=== PATIENT | male | born 1955 | race Caucasian/White ===

== ENCOUNTER 2018-12-26 11:18 | Emergency (ER) | payer OTHER, SELFPAY ==
[2018-12-26 11:29] VITALS: BP 170/77; PULSE 84; RESP 14; TEMP 36.4; O2SAT 99
--- NOTE | 2018-12-26 11:42 | ED.BACK ---
HPI - Back Pain/Injury <AMARILIS Mayers - Last Filed: 12/26/18 14:51> General Chief Complaint: Back Pain/Injury Stated Complaint: Low back pain Time Seen by Provider: 12/26/18 11:25 Source: patient Mode of arrival: ambulatory Limitations: no limitations History of Present Illness HPI Narrative: This is a 63-year-old male, nonsmoker, who presents with chief complain of bilateral nonradiating low back pain. He denies fever chills, nausea, vomiting. Patient denies urinary symptoms. Patient reports history of kidney stone once in the past. Patient reports he woke up a couple of days ago with back tightness and felt his back tweaked. He denies injury, trauma, any recent heavy lifting, recent back manipulation, or injection. He reports pain increases with changing in his body position, movement. He denies tingling numbness to his lower extremities, numbness to his groin area, weakness to his extremities. He reports had taken and stays last night. Related Data Home Medications Medication Instructions Recorded Confirmed [SLEEPING PILL] #0 08/26/17 Previous Rx's Medication Instructions Recorded aspirin 81 mg PO QPM #30 tab 08/27/17 carvedilol [Coreg] 12.5 mg PO BID #60 tab 08/27/17 furosemide 40 mg PO QDAY #30 tab 08/27/17 losartan 100 mg PO QPM #30 tab 08/27/17 rosuvastatin 10 mg PO HS #30 tab 08/27/17 sertraline 50 mg PO QDAY #30 tab 08/27/17 spironolactone 25 mg PO QDAY #30 tab 08/27/17 ciprofloxacin HCl [Cipro] 500 mg PO BID #14 tab 12/26/18 cyclobenzaprine 10 mg PO BEDTIME #5 tab 12/26/18 Allergies Allergy/AdvReac Type Severity Reaction Status Date / Time No Known Allergies Allergy Uncoded 08/26/17 14:15 Review of Systems <AMARILIS Mayers - Last Filed: 12/26/18 14:51> Review of Systems General: Denies fever, chills, fatigue, malaise, sweats. HEENT: Denies sinus pain, ear pain, sore throat, difficulty swallowing, dizziness. Respiratory: Denies dyspnea, cough, wheezing, hemoptysis, sputum. Cardiovascular: Denies chest pain, palpitations, orthopnea, edema. Gastrointestinal: Denies nausea, vomiting, abdominal pain, diarrhea, constipation, melena. : Denies dysuria, frequency, incontinence, hematuria, urinary retention. Musculoskeletal: Denies weakness, joint pain or bony pain. Skin: Denies rash, skin lesions, or other. Neurologic: Denies weakness, headache, numbness, change in speech, confusion, seizures, incoordination. Psychiatric: No concerning psychosocial issues. 12-point review of systems is negative except for those stated above. ENT Ears, Nose, Mouth, and Throat: Denies neck pain Musculoskeletal Reports abnormal gait, Reports back pain, Denies joint swelling, Reports limited range of motion, Denies muscle weakness, Denies neck pain, Denies numbness, Denies radiating pain into limb, Reports stiffness and Denies tingling Neurologic Reports abnormal gait, Denies numbness and Denies tingling PFSH <AMARILIS Mayers - Last Filed: 12/26/18 14:51> Medical History (Updated 12/26/18 @ 14:21 by AMARILIS Mayers) Cardiac defibrillator in place (Acute) HTN (hypertension) (Acute) Heart failure (Acute) Hyperlipidemia (Acute) Social History (Updated 12/26/18 @ 14:51 by AMARILIS Mayers) Smoking Status: Never smoker Exam <DEUCE MayersP - Last Filed: 12/26/18 14:51> Narrative Exam Narrative: General appearance: well developed, well nourished, in discomfort, walking into ED room in slow and waddle-like gait. Head: normocephalic, atraumatic, no scalp lesions, non-tender. Eye: pupil equal, round. EOMI. Nose: nares patent. Oral: mucosa moist. Neck/Thyroid: neck supple, full range of motion, no visible masses. Skin: no suspicious rashes, lesions over visible areas. Warm and dry. Heart: no clubbing, no cyanosis, no edema. Lungs: Clear to auscultate bilaterally. Breathing even and unlabored. No stridor. No accessory muscles used. Chest: S1, S2 in regular rhythm and rate. normal shape and expansion. Abdomen: non-obese, non-distended. Abdomen soft to palpate. Bowel sounds in 4 quadrants. No organomegaly. Neurologic: alert and oriented. Cognitive exam, [employer]OR and PNS grossly intact on informal exam. Psych: good eye contact, normal affect. Initial Vital Signs Initial Vital Signs: Vital Signs Temperature 97.6 F 12/26/18 11:29 Pulse Rate 84 12/26/18 11:29 Respiratory Rate 14 12/26/18 11:29 Blood Pressure 170/77 H 12/26/18 11:29 Pulse Oximetry 99 12/26/18 11:29 Back/Spine/Pelvis Back: normal to inspection Cervical Spine: normal cervical lordosis Thoracic/Lumbar Spine: thoracic and lumbar spine normal to inspection, No surgical scar(s) present, bend over test abnormal, No paraspinal tenderness, thoraco-lumbar ROM limited, No lumbar spinal tenderness, straight leg raise positive and other (Limited active range of motion with flexion, extension, lateral bending.) Other: 2+ patella tendon reflex bilaterally <DO Karyna Mendez Last Filed: 12/26/18 17:56> Initial Vital Signs Initial Vital Signs: Vital Signs Temperature 97.6 F 12/26/18 11:29 Pulse Rate 84 12/26/18 11:29 Respiratory Rate 14 12/26/18 11:29 Blood Pressure 170/77 H 12/26/18 11:29 Pulse Oximetry 99 12/26/18 11:29 Course <AMARILIS Mayers - Last Filed: 12/26/18 14:51> Orders Ordered: ED Orders 12/26/18 11:43 XR lumbar spine 2-3V Stat 12/26/18 13:30 Urine Culture Stat Urine Microscopic Stat Discontinued Medications Cyclobenzaprine HCl (Flexeril) 10 mg PO NOW ONE Stop: 12/26/18 11:43 Last Admin: 12/26/18 12:09 Dose: 10 mg Ketorolac Tromethamine (Toradol) 60 mg IM NOW ONE Stop: 12/26/18 11:43 Last Admin: 12/26/18 12:09 Dose: 60 mg Vital Signs - 8 hr 12/26/18 11:29 12/26/18 13:53 Temperature 97.6 F Pulse Rate 84 54 L Respiratory Rate 14 17 Blood Pressure 170/77 H Blood Pressure [Right Arm] 153/84 H Pulse Oximetry 99 100 <DO Karyna Mendez Last Filed: 12/26/18 17:56> Orders Ordered: ED Orders 12/26/18 11:43 XR lumbar spine 2-3V Stat 12/26/18 13:30 Urine Culture Stat Urine Microscopic Stat Discontinued Medications Cyclobenzaprine HCl (Flexeril) 10 mg PO NOW ONE Stop: 12/26/18 11:43 Last Admin: 12/26/18 12:09 Dose: 10 mg Ketorolac Tromethamine (Toradol) 60 mg IM NOW ONE Stop: 12/26/18 11:43 Last Admin: 12/26/18 12:09 Dose: 60 mg Vital Signs - 8 hr 12/26/18 11:29 12/26/18 13:53 Temperature 97.6 F Pulse Rate 84 54 L Respiratory Rate 14 17 Blood Pressure 170/77 H Blood Pressure [Right Arm] 153/84 H Pulse Oximetry 99 100 MDM - Back Pain/Injury <Xiang AMARILIS Gomez - Last Filed: 12/26/18 14:51> Differential Diagnosis Differential diagnosis: Likely other (Lumbar strain, Low back pain) Medical Records Attestation: I reviewed the patient's medical records. Lab Data Lab Results 12/26/18 Range/Units 13:30 Urine RBC 1-5/hpf (0-5/HPF) Urine WBC 1-5/hpf (0-5/HPF) Ur Squamous Epith Cells 0-1 /hpf (0-5/HPF) Urine Bacteria Few (2-10) H (None) Urine Mucus 2+ H (Negative) Urine Sperm Present Ur Culture Indicated? Specimen cultured Urine Dip Bedside Urine Glucose Negative Bedside Urine Bilirubin + 1 Bedside Urine Ketone +/- 5 Urine Specific Anthony 1.025 Bedside Urine Occult Blood +/- Bedside Urine pH 5.5 Bedside Urine Protein + 30 Bedside Urine Urobilinogen +/- 1mg Bedside Urine Nitrite - Negative Bedside Urine Leukocytes +/- 15 Esterase Imaging Data XR-Lumbar: Radiologist's impression: Priyank Del Rosario 63 M [address] [address] XRay Report Signed Patient: Priyank Del Rosario GMR#: [id number] : 5Acct:[id number] Age/Sex: 63 / MDate of Service: 12/26/18 Loc: ED Accession Number: [id number] Procedure: XR lumbar spine 2-3V Ordering Provider: Xiang Gomez PROCEDURE: XR LUMBAR SPINE 2-3V INDICATIONS: low back pain TECHNIQUE: 3 views of the lumbar spine were acquired. COMPARISON: None. FINDINGS: Bones: 5 [id number] vertebrae are present. Straightening of the normal lumbar lordosis is present without spondylolisthesis. No vertebral body compression fractures. No suspicious bony lesions. Mild to moderate degenerative changes of the lumbar spine are more prominent involving the lower lumbar facet joints. Areas of mild disc height loss and anterior disc osteophyte complexes are present. Soft tissues: Overlying bowel gas pattern is normal. There is aortic atherosclerosis. No suspicious soft tissue calcifications. IMPRESSION: 1. No acute osseous abnormality of the lumbar spine. 2. Mild to moderate degenerative changes of the lumbar spine. Dictated by: Jose Nichols M.D. on 12/26/2018 at 11:22 Approved by: Jose Nichols M.D. on 12/26/2018 at 11:23 [facility] Narrative Medical decision making narrative: This is a 63-year-old male who presents with nonradiating bilateral low back pain for 2 days without injury, trauma, urinary symptoms. Patient denies constitutional symptoms, saddle anesthesia, weakness to bilateral lower limbs. Physical exam is more consistent with muscular skeletal back pain. Patient was treated with Flexeril 10 mg, Ketolac IM injection 60 mg while in ED. Lumbar x-ray test was negative for fractures but with mild to moderate degenerative changes of the lumbar spine. Urine POC test indicates infection with positive leukocytes esterase, blood, affected area and mucus and it is being cultured at this time. patient is being treated for pyelonephritis as well. We discussed return precautions. Patient reports does not have a PCP at this time. Patient advised to find a PCP by calling [facility] health resources, [facility] walk-in clinic, ED. Patient has no further questions and agrees with treatment plan. <Syed Barrientos, - Last Filed: 12/26/18 17:56> Lab Data Lab Results 12/26/18 Range/Units 13:30 Urine RBC 1-5/hpf (0-5/HPF) Urine WBC 1-5/hpf (0-5/HPF) Ur Squamous Epith Cells 0-1 /hpf (0-5/HPF) Urine Bacteria Few (2-10) H (None) Urine Mucus 2+ H (Negative) Urine Sperm Present Ur Culture Indicated? Specimen cultured Urine Dip Bedside Urine Glucose Negative Bedside Urine Bilirubin + 1 Bedside Urine Ketone +/- 5 Urine Specific Anthony 1.025 Bedside Urine Occult Blood +/- Bedside Urine pH 5.5 Bedside Urine Protein + 30 Bedside Urine Urobilinogen +/- 1mg Bedside Urine Nitrite - Negative Bedside Urine Leukocytes +/- 15 Esterase Discharge Plan Departure Patient Disposition: Home Clinical Impression: Infection of kidney Low back pain Qualifiers: Chronicity: acute Back pain laterality: bilateral Sciatica presence: without sciatica Qualified Code(s): M54.5 - Low back pain Discharge Date/Time: 12/26/18 14:39 Interventions: ED Discharge Assessment Last Done: 12/26/18 14:38 Instructions: DI for Kidney Infection, DI for Low Back Pain Activity Restrictions/Additional Instructions: You have been diagnosed with [ low back pain and kidney infection. You're physical exam is consistent with musculoskeletal pain. However you're urine test shows bacteria in her urine and you're urine is being cultured at this time. We will treat you for bladder infection/kidney infection as well at this time. You will be contacted if you're urine infection shows you require different medications]. What to do: *Take your medications as directed. Complete a course of antibiotic medications unless this gives you allergy reaction. You can take [id number] Tylenol, ibuprofen Motrin as needed for pain. You could use warm pack on affected site. Cyclobenzaprine is muscle relaxants and this may cause drowsiness and please take precaution. Please do not take alcohol, drive, or operate heavy equipment. *Follow up with your primary care provider in 2-3 days, call for an appointment. Let them know you were seen in the ED and that we asked you to be seen in follow up. *Return to ED if you have any new, worsening, or concerning symptoms, such as [increasing pain, tingling numbness to groin or extremities, incontinence, fever/chills, unable to tolerate fluids, chest pain, breathing difficulty, any acute concerns]. Prescriptions: New cyclobenzaprine 10 mg tablet 10 mg PO BEDTIME Qty: 5 RF: 0 ciprofloxacin HCl [Cipro] 500 mg tablet 500 mg PO BID Qty: 14 RF: 0 No Action [SLEEPING PILL] Qty: 0 RF: 0 carvedilol [Coreg] 12.5 MG tablet 12.5 mg PO BID Qty: 60 RF: 0 aspirin 81 MG tablet,delayed release (DR/EC) 81 mg PO QPM Qty: 30 RF: 0 losartan 100 MG tablet 100 mg PO QPM Qty: 30 RF: 0 rosuvastatin 10 MG tablet 10 mg PO HS Qty: 30 RF: 0 spironolactone 25 MG tablet 25 mg PO QDAY Qty: 30 RF: 0 sertraline 50 MG tablet 50 mg PO QDAY Qty: 30 RF: 0 furosemide 40 MG tablet 40 mg PO QDAY Qty: 30 RF: 0 Referrals: [facility] [Outside] <Syed Barrientos DO - Last Filed: 12/26/18 17:56> Cosign ED Attending Joseature Attestation: I was immediately available in the department for consultation. Documentation has been reviewed. I agree with assessment and plan.
--- NOTE | 2018-12-26 11:57 | ED_ITS ---
HPI - Back Pain/Injury <AMARILIS Mayers - Last Filed: 12/26/18 14:51> General Chief Complaint: Back Pain/Injury Stated Complaint: Low back pain Time Seen by Provider: 12/26/18 11:25 Source: patient Mode of arrival: ambulatory Limitations: no limitations History of Present Illness HPI Narrative: This is a 63-year-old male, nonsmoker, who presents with chief complain of bilateral nonradiating low back pain. He denies fever chills, nausea, vomiting. Patient denies urinary symptoms. Patient reports history of kidney stone once in the past. Patient reports he woke up a couple of days ago with back tightness and felt his back tweaked. He denies injury, trauma, any recent heavy lifting, recent back manipulation, or injection. He reports pain increases with changing in his body position, movement. He denies tingling numbness to his lower extremities, numbness to his groin area, weakness to his extremities. He reports had taken and stays last night. Related Data Home Medications Medication Instructions Recorded Confirmed [SLEEPING PILL] #0 08/26/17 Previous Rx's Medication Instructions Recorded aspirin 81 mg PO QPM #30 tab 08/27/17 carvedilol [Coreg] 12.5 mg PO BID #60 tab 08/27/17 furosemide 40 mg PO QDAY #30 tab 08/27/17 losartan 100 mg PO QPM #30 tab 08/27/17 rosuvastatin 10 mg PO HS #30 tab 08/27/17 sertraline 50 mg PO QDAY #30 tab 08/27/17 spironolactone 25 mg PO QDAY #30 tab 08/27/17 ciprofloxacin HCl [Cipro] 500 mg PO BID #14 tab 12/26/18 cyclobenzaprine 10 mg PO BEDTIME #5 tab 12/26/18 Allergies Allergy/AdvReac Type Severity Reaction Status Date / Time No Known Allergies Allergy Uncoded 08/26/17 14:15 Review of Systems <AMARILIS Mayers - Last Filed: 12/26/18 14:51> Review of Systems General: Denies fever, chills, fatigue, malaise, sweats. HEENT: Denies sinus pain, ear pain, sore throat, difficulty swallowing, dizziness. Respiratory: Denies dyspnea, cough, wheezing, hemoptysis, sputum. Cardiovascular: Denies chest pain, palpitations, orthopnea, edema. Gastrointestinal: Denies nausea, vomiting, abdominal pain, diarrhea, constipation, melena. : Denies dysuria, frequency, incontinence, hematuria, urinary retention. Musculoskeletal: Denies weakness, joint pain or bony pain. Skin: Denies rash, skin lesions, or other. Neurologic: Denies weakness, headache, numbness, change in speech, confusion, seizures, incoordination. Psychiatric: No concerning psychosocial issues. 12-point review of systems is negative except for those stated above. ENT Ears, Nose, Mouth, and Throat: Denies neck pain Musculoskeletal Reports abnormal gait, Reports back pain, Denies joint swelling, Reports limited range of motion, Denies muscle weakness, Denies neck pain, Denies numbness, Denies radiating pain into limb, Reports stiffness and Denies tingling Neurologic Reports abnormal gait, Denies numbness and Denies tingling PFSH <AMARILIS Mayers - Last Filed: 12/26/18 14:51> Medical History (Updated 12/26/18 @ 14:21 by AMARILIS Mayers) Cardiac defibrillator in place (Acute) HTN (hypertension) (Acute) Heart failure (Acute) Hyperlipidemia (Acute) Social History (Updated 12/26/18 @ 14:51 by AMARILIS Mayers) Smoking Status: Never smoker Exam <DEUCE MayersP - Last Filed: 12/26/18 14:51> Narrative Exam Narrative: General appearance: well developed, well nourished, in discomfort, walking into ED room in slow and waddle-like gait. Head: normocephalic, atraumatic, no scalp lesions, non-tender. Eye: pupil equal, round. EOMI. Nose: nares patent. Oral: mucosa moist. Neck/Thyroid: neck supple, full range of motion, no visible masses. Skin: no suspicious rashes, lesions over visible areas. Warm and dry. Heart: no clubbing, no cyanosis, no edema. Lungs: Clear to auscultate bilaterally. Breathing even and unlabored. No stridor. No accessory muscles used. Chest: S1, S2 in regular rhythm and rate. normal shape and expansion. Abdomen: non-obese, non-distended. Abdomen soft to palpate. Bowel sounds in 4 quadrants. No organomegaly. Neurologic: alert and oriented. Cognitive exam, [employer] and PNS grossly intact on informal exam. Psych: good eye contact, normal affect. Initial Vital Signs Initial Vital Signs: Vital Signs Temperature 97.6 F 12/26/18 11:29 Pulse Rate 84 12/26/18 11:29 Respiratory Rate 14 12/26/18 11:29 Blood Pressure 170/77 H 12/26/18 11:29 Pulse Oximetry 99 12/26/18 11:29 Back/Spine/Pelvis Back: normal to inspection Cervical Spine: normal cervical lordosis Thoracic/Lumbar Spine: thoracic and lumbar spine normal to inspection, No surgical scar(s) present, bend over test abnormal, No paraspinal tenderness, thoraco-lumbar ROM limited, No lumbar spinal tenderness, straight leg raise positive and other (Limited active range of motion with flexion, extension, lateral bending.) Other: 2+ patella tendon reflex bilaterally <DO Karyna Mendez Last Filed: 12/26/18 17:56> Initial Vital Signs Initial Vital Signs: Vital Signs Temperature 97.6 F 12/26/18 11:29 Pulse Rate 84 12/26/18 11:29 Respiratory Rate 14 12/26/18 11:29 Blood Pressure 170/77 H 12/26/18 11:29 Pulse Oximetry 99 12/26/18 11:29 Course <AMARILIS Mayers - Last Filed: 12/26/18 14:51> Orders Ordered: ED Orders 12/26/18 11:43 XR lumbar spine 2-3V Stat 12/26/18 13:30 Urine Culture Stat Urine Microscopic Stat Discontinued Medications Cyclobenzaprine HCl (Flexeril) 10 mg PO NOW ONE Stop: 12/26/18 11:43 Last Admin: 12/26/18 12:09 Dose: 10 mg Ketorolac Tromethamine (Toradol) 60 mg IM NOW ONE Stop: 12/26/18 11:43 Last Admin: 12/26/18 12:09 Dose: 60 mg Vital Signs - 8 hr 12/26/18 11:29 12/26/18 13:53 Temperature 97.6 F Pulse Rate 84 54 L Respiratory Rate 14 17 Blood Pressure 170/77 H Blood Pressure [Right Arm] 153/84 H Pulse Oximetry 99 100 <DO Karyna Mendez Last Filed: 12/26/18 17:56> Orders Ordered: ED Orders 12/26/18 11:43 XR lumbar spine 2-3V Stat 12/26/18 13:30 Urine Culture Stat Urine Microscopic Stat Discontinued Medications Cyclobenzaprine HCl (Flexeril) 10 mg PO NOW ONE Stop: 12/26/18 11:43 Last Admin: 12/26/18 12:09 Dose: 10 mg Ketorolac Tromethamine (Toradol) 60 mg IM NOW ONE Stop: 12/26/18 11:43 Last Admin: 12/26/18 12:09 Dose: 60 mg Vital Signs - 8 hr 12/26/18 11:29 12/26/18 13:53 Temperature 97.6 F Pulse Rate 84 54 L Respiratory Rate 14 17 Blood Pressure 170/77 H Blood Pressure [Right Arm] 153/84 H Pulse Oximetry 99 100 MDM - Back Pain/Injury <Xiang AMARILIS Gomez - Last Filed: 12/26/18 14:51> Differential Diagnosis Differential diagnosis: Likely other (Lumbar strain, Low back pain) Medical Records Attestation: I reviewed the patient's medical records. Lab Data Lab Results 12/26/18 Range/Units 13:30 Urine RBC 1-5/hpf (0-5/HPF) Urine WBC 1-5/hpf (0-5/HPF) Ur Squamous Epith Cells 0-1 /hpf (0-5/HPF) Urine Bacteria Few (2-10) H (None) Urine Mucus 2+ H (Negative) Urine Sperm Present Ur Culture Indicated? Specimen cultured Urine Dip Bedside Urine Glucose Negative Bedside Urine Bilirubin + 1 Bedside Urine Ketone +/- 5 Urine Specific Arboles 1.025 Bedside Urine Occult Blood +/- Bedside Urine pH 5.5 Bedside Urine Protein + 30 Bedside Urine Urobilinogen +/- 1mg Bedside Urine Nitrite - Negative Bedside Urine Leukocytes +/- 15 Esterase Imaging Data XR-Lumbar: Radiologist's impression: Priyank Del Rosario 63 M [address] [id number] XRay Report Signed Patient: Priyank Del Rosario GMR#: [id number] : 5Acct:[id number] Age/Sex: 63 / MDate of Service: 12/26/18 Loc: ED Accession Number: [id number] Procedure: XR lumbar spine 2-3V Ordering Provider: Xiang Gomez PROCEDURE: XR LUMBAR SPINE 2-3V INDICATIONS: low back pain TECHNIQUE: 3 views of the lumbar spine were acquired. COMPARISON: None. FINDINGS: Bones: 5 [id number] vertebrae are present. Straightening of the normal lumbar lordosis is present without spondylolisthesis. No vertebral body compression fractures. No suspicious bony lesions. Mild to moderate degenerative changes of the lumbar spine are more prominent involving the lower lumbar facet joints. Areas of mild disc height loss and anterior disc osteophyte complexes are present. Soft tissues: Overlying bowel gas pattern is normal. There is aortic atherosclerosis. No suspicious soft tissue calcifications. IMPRESSION: 1. No acute osseous abnormality of the lumbar spine. 2. Mild to moderate degenerative changes of the lumbar spine. Dictated by: Jose Nichols M.D. on 12/26/2018 at 11:22 Approved by: Jose Nichols M.D. on 12/26/2018 at 11:23 [facility] Narrative Medical decision making narrative: This is a 63-year-old male who presents with nonradiating bilateral low back pain for 2 days without injury, trauma, urinary symptoms. Patient denies constitutional symptoms, saddle anesthesia, weakness to bilateral lower limbs. Physical exam is more consistent with muscular skeletal back pain. Patient was treated with Flexeril 10 mg, Ketolac IM injection 60 mg while in ED. Lumbar x-ray test was negative for fractures but with mild to moderate degenerative changes of the lumbar spine. Urine POC test indicates infection with positive leukocytes esterase, blood, affected area and mucus and it is being cultured at this time. patient is being treated for pyelonephritis as well. We discussed return precautions. Patient reports does not have a PCP at this time. Patient advised to find a PCP by calling [facility] health resources, [facility] walk-in clinic, ED. Patient has no further questions and agrees with treatment plan. <Syed Barreintos, - Last Filed: 12/26/18 17:56> Lab Data Lab Results 12/26/18 Range/Units 13:30 Urine RBC 1-5/hpf (0-5/HPF) Urine WBC 1-5/hpf (0-5/HPF) Ur Squamous Epith Cells 0-1 /hpf (0-5/HPF) Urine Bacteria Few (2-10) H (None) Urine Mucus 2+ H (Negative) Urine Sperm Present Ur Culture Indicated? Specimen cultured Urine Dip Bedside Urine Glucose Negative Bedside Urine Bilirubin + 1 Bedside Urine Ketone +/- 5 Urine Specific Arboles 1.025 Bedside Urine Occult Blood +/- Bedside Urine pH 5.5 Bedside Urine Protein + 30 Bedside Urine Urobilinogen +/- 1mg Bedside Urine Nitrite - Negative Bedside Urine Leukocytes +/- 15 Esterase Discharge Plan Departure Patient Disposition: Home Clinical Impression: Infection of kidney Low back pain Qualifiers: Chronicity: acute Back pain laterality: bilateral Sciatica presence: without sciatica Qualified Code(s): M54.5 - Low back pain Discharge Date/Time: 12/26/18 14:39 Interventions: ED Discharge Assessment Last Done: 12/26/18 14:38 Instructions: DI for Kidney Infection, DI for Low Back Pain Activity Restrictions/Additional Instructions: You have been diagnosed with [ low back pain and kidney infection. You're physical exam is consistent with musculoskeletal pain. However you're urine test shows bacteria in her urine and you're urine is being cultured at this time. We will treat you for bladder infection/kidney infection as well at this time. You will be contacted if you're urine infection shows you require different medications]. What to do: *Take your medications as directed. Complete a course of antibiotic medications unless this gives you allergy reaction. You can take [id number] Tylenol, ibuprofen Motrin as needed for pain. You could use warm pack on affected site. Cyclobenzaprine is muscle relaxants and this may cause drowsiness and please take precaution. Please do not take alcohol, drive, or operate heavy equipment. *Follow up with your primary care provider in 2-3 days, call for an appointment. Let them know you were seen in the ED and that we asked you to be seen in follow up. *Return to ED if you have any new, worsening, or concerning symptoms, such as [increasing pain, tingling numbness to groin or extremities, incontinence, fever/chills, unable to tolerate fluids, chest pain, breathing difficulty, any acute concerns]. Prescriptions: New cyclobenzaprine 10 mg tablet 10 mg PO BEDTIME Qty: 5 RF: 0 ciprofloxacin HCl [Cipro] 500 mg tablet 500 mg PO BID Qty: 14 RF: 0 No Action [SLEEPING PILL] Qty: 0 RF: 0 carvedilol [Coreg] 12.5 MG tablet 12.5 mg PO BID Qty: 60 RF: 0 aspirin 81 MG tablet,delayed release (DR/EC) 81 mg PO QPM Qty: 30 RF: 0 losartan 100 MG tablet 100 mg PO QPM Qty: 30 RF: 0 rosuvastatin 10 MG tablet 10 mg PO HS Qty: 30 RF: 0 spironolactone 25 MG tablet 25 mg PO QDAY Qty: 30 RF: 0 sertraline 50 MG tablet 50 mg PO QDAY Qty: 30 RF: 0 furosemide 40 MG tablet 40 mg PO QDAY Qty: 30 RF: 0 Referrals: [facility] [Outside] <Syed Barrientos DO - Last Filed: 12/26/18 17:56> Cosign ED Attending Joseature Attestation: I was immediately available in the department for consultation. Documentation has been reviewed. I agree with assessment and plan.
[2018-12-26] MEDS: KETOROLAC 60 MG/2 ML VIAL IM (12:09)
[2018-12-26] MEDS: CYCLOBENZAPRINE 10 MG TABLET PO (12:09)
[2018-12-26 13:47] LABS: Bacteria Urine Few (2-10); Culture Indicated Urine Specimen Cultured; Mucus Urine 2+ (Negative); RBC Urine 1-5/HPF (0-5/HPF); Squamous Epithelial Cell Urine 0-1 /HPF (0-5/HPF); WBC Urine 1-5/HPF (0-5/HPF)
[2018-12-26 13:50] LABS: Sperm Urine PRESENT
[2018-12-26 13:53] VITALS: BP 153/84; PULSE 54; RESP 17; O2SAT 100
== END 2018-12-26 14:39 | disposition home or self-care (01) ==
PROVIDERS: Emergency Provider Nurse Practitioner Family
DX: N15.9 Renal tubulo-interstitial disease, unspecified (principal); M54.5 Low back pain
CPT/HCPCS: 72100; 81003; 81015; 87086; 96372; 99282; 99283; J1885

== ENCOUNTER → 2019-02-17 16:11 | Outpatient (CLI) | payer OTHER, SELFPAY ==
--- NOTE | 2019-02-17 | DI.ECHO.S_ITS ---
[facility]---------+ [facility] +---------+ : : [address] [place] : : : : [id number] : : : : Phone: [phone] Echocardiogram Report + + :Name: KEVIN STRINGER Study Date: 02/17/2019 Height: 70 in : :[facility] Exam Location: [facility] Weight: 227 lb : : Gender: Male BSA: 2.2 m2 : :: 1955 Age: 63 yrs BP: 145/82 mmHg: :Reason For Study: ISCHEMIC CM : : Performed By: Norbert Nguyen : :Referring: EILEEN TENA : + + Interpretation Summary 1) Mildly enlarged left ventricle with moderately reduceed systolic function (EF 30-35%). 2) Akinesis of the basal to mid inferior wall and basal to mid inferolateral wall. Rest of the LV is moderately hypokinetic. 3) Normal right ventricular size and functoin. 4) No significant valvular abnormalities. 5) Compared to the Echo done 12/21/2017, no significant change. Procedure: A two-dimensional transthoracic echocardiogram with color flow and Doppler was performed. The study quality was technically good. Comparison is made with the echocardiogram of 12/21/17. The patient has a paced rhythm. The patient had occasional PVCs during the exam. Left Ventricle: There is normal left ventricular wall thickness. The left ventricle is mildly dilated. The ejection fraction is estimated to be 30-35%. Akinesis of the basal to mid inferior wall and basal to mid inferolateral wall. Rest of the LV is moderately hypokinetic. Diastolic parameters suggest a pseudonormalization pattern, consistent with probable elevated filling pressures. Right Ventricle: The right ventricle is normal in size and function. There is a pacemaker lead in the right ventricle. Atria: The left atrium is moderately dilated. Right atrial size is normal. The interatrial septum is intact with no evidence for an atrial septal defect. Mitral Valve: The mitral valve is normal in structure and function. There is trace mitral regurgitation. Aortic Valve: The aortic valve is trileaflet. The aortic valve opens well. There is no aortic valve stenosis. There is trace aortic regurgitation. Tricuspid Valve: The tricuspid valve is normal in structure and function. No tricuspid regurgitation. Pulmonary artery pressures cannot be estimated because of the lack of a measurable TR jet velocity. Pulmonic Valve: The pulmonic valve is normal in structure and function. There is trace pulmonic regurgitation. Great Vessels: The aortic root is normal size. The dimensions of the ascending aorta are normal. The pulmonary artery is normal size. The IVC is of normal diameter and collapses greater than 50% with a sniff. This suggests a low right atrial pressure of 3 mm Hg. Pericardium/ Pleura There is no pericardial effusion. There is no pleural effusion. MMode/2D Measurements & Calculations LVIDd: 6.0 cm LVOT diam: 2.1 cm LVIDs: 4.7 cm Ao root diam: 3.2 cm FS: 21.3 % Aortic Jxn: 2.1 cm EPSS: 2.0 cm asc Aorta Diam: 3.0 cm IVSd: 0.92 cm Ao Arch Diam (Prox Trans): 3.0 cm LVPWd: 1.0 cm LV mancini. diameter/BSA (cm/m^2): 2.7 LV sys. diameter/BSA (cm/m^2): 2.1 LA dimension: 3.4 cm RA long axis: 4.1 cm LA A2 area: 26.1 cm2 RA area: 13.8 cm2 LA A4 area: 22.4 cm2 RA vol: 39.6 ml LA length (vol): 5.9 cm RA : 18.0 ml/m2 LA vol: 84.7 ml IVC diam: 1.2 cm LA vol index: 38.5 ml/m2 Doppler Measurements & Calculations Ao V2 max: 137.9 cm/sec LVOT Max Brando: 114.2 cm/sec Ao V2 mean: 98.6 cm/sec LV V1 max P.2 mmHg Ao max P.6 mmHg LV V1 VTI: 28.6 cm Ao mean P.2 mmHg JS(I,D): 3.1 cm2 Ao V2 VTI: 32.2 cm JS(V,D): 2.9 cm2 sev ratio: 0.89 JS indexed to BSA (cm^2/m^2): 1.4 MV E max brando: 61.3 cm/sec PA V2 max: 100.4 cm/sec MV A max brando: 78.6 cm/sec PA V2 mean: 66.0 cm/sec MV E/A: 0.78 PA mean P.0 mmHg Med Peak E' Brando: 3.3 cm/sec PA pr(Accel): 49.1 mmHg E/E' med: 18.6 PA Accel Time: 0.06 sec Lat Peak E' Brando: 4.7 cm/sec E/E' lat: 12.9 E/e' average: 15.7 MV dec time: 0.23 sec SV(LVOT): 99.1 ml Reading Physician:10:44 AM
== END ==
LOC: ECHO 16:13
PROVIDERS: Visit Provider Internal Medicine Cardiovascular Disease
DX: I25.5 Ischemic cardiomyopathy (principal); Z95.0 Presence of cardiac pacemaker
CPT/HCPCS: 93306

== ENCOUNTER → 2019-12-05 15:10 | Outpatient (CLI) | payer OTHER, SELFPAY ==
--- NOTE | 2019-12-05 15:17 | DI.ECHO.S_ITS ---
Echocardiogram Report + + :Name: KEVIN STRINGER Study Date: 12/05/2019 Height: 70 in : :[facility] Weight: 220 lb : : Gender: Male BSA: 2.2 m2 : :: 1955 Age: 64 yrs BP: 142/78 mmHg: :Reason For Study: Ischemic Cardiomyopathy : :Ordering Physician: ALANA, : :EILEEN Performed By: Rehana Rodriguez : :Referring: EILEEN TENA : + + Interpretation Summary 1) Normal left ventricular size with moderately reduceed systolic function (EF 35-40%). 2) Akinesis of the basal to mid inferior wall and basal to mid inferolateral wall. Rest of the LV is hypokinetic. 3) Normal right ventricular size and function. There is a pacemaker lead in the right ventricle. 4) No significant valvular abnormalities. 5) Compared to the Echo done 02/17/2019, LVEF has improved from 30-35% to 35- 40% on this study. Procedure: A two-dimensional transthoracic echocardiogram with color flow and Doppler was performed. The study quality was technically adequate. Comparison is made with the echocardiogram of 02/17/2019. The patient has a paced rhythm. The heart rate ranged between 66-73 bpm during the study. Left Ventricle: The left ventricle is normal in size. The estimated left ventricular end diastolic volume is 92 ml. The ejection fraction is estimated to be 30-35%. Diastolic function could not be accurately assessed due to paced rhythm. Right Ventricle: The right ventricle is normal in size and function. There is a pacemaker lead in the right ventricle. Atria: Both atria are normal in size. Mitral Valve: The mitral valve is normal in structure but abnormal in function. There is trace mitral regurgitation. Aortic Valve: The aortic valve is trileaflet. The aortic valve opens well. There is no aortic valve stenosis. There is trace aortic regurgitation. Tricuspid Valve: The tricuspid valve is normal in structure and function. Pulmonary artery pressures cannot be estimated because of the lack of a measurable TR jet velocity. Pulmonic Valve: The pulmonic valve is not well seen, but is grossly normal. There is trace pulmonic regurgitation. Great Vessels: The aortic root is normal size. The dimensions of the ascending aorta are normal. The inferior vena cava was not visualized. Pericardium/ Pleura There is no pericardial effusion. There is no pleural effusion. MMode/2D Measurements & Calculations LVIDd: 5.8 cm LVOT diam: 2.0 cm LVIDs: 5.0 cm Ao root diam: 2.9 cm FS: 13.9 % asc Aorta Diam: 2.9 cm EPSS: 1.6 cm Ao Arch Diam (Prox Trans): 3.0 cm IVSd: 1.1 cm LVPWd: 0.88 cm LV mancini. diameter/BSA (cm/m^2): 2.7 LV sys. diameter/BSA (cm/m^2): 2.3 LA A2 area: 19.1 cm2 RA long axis: 4.3 cm LA A4 area: 13.0 cm2 RA area: 12.2 cm2 LA length (vol): 5.0 cm RA vol: 29.7 ml LA vol: 41.8 ml RA : 13.7 ml/m2 LA vol index: 19.2 ml/m2 RVD1 (basal): 3.0 cm TAPSE: 1.7 cm Doppler Measurements & Calculations Ao V2 max: 136.4 cm/sec LVOT Max Brando: 78.8 cm/sec Ao V2 mean: 95.7 cm/sec LV V1 max P.5 mmHg Ao max P.4 mmHg LV V1 VTI: 13.6 cm Ao mean P.1 mmHg JS(I,D): 1.7 cm2 Ao V2 VTI: 25.5 cm JS(V,D): 1.8 cm2 sev ratio: 0.53 JS indexed to BSA (cm^2/m^2): 0.76 MV E max brando: 39.5 cm/sec PA V2 max: 82.6 cm/sec MV A max brando: 75.7 cm/sec PA V2 mean: 51.0 cm/sec MV E/A: 0.52 PA mean P.2 mmHg Med Peak E' Brando: 3.4 cm/sec PA pr(Accel): 32.8 mmHg E/E' med: 11.7 Lat Peak E' Brando: 4.1 cm/sec E/E' lat: 9.7 E/e' average: 10.7 MV dec time: 0.30 sec SV(LVOT): 42.3 ml Reading Physician:04:46 PM
== END ==
PROVIDERS: Referring Provider Internal Medicine Cardiovascular Disease; Visit Provider Internal Medicine Cardiovascular Disease
DX: I25.5 Ischemic cardiomyopathy (principal); Z95.0 Presence of cardiac pacemaker
CPT/HCPCS: 93306